=== PATIENT | male | born 1970 | race Caucasian/White ===

== ENCOUNTER → 2020-01-16 12:31 | Outpatient (CLI) | payer SELFPAY ==
[2020-01-16 13:31] LABS: Add Manual Diff / Slide Review NO; Basophils Absolute Auto 0 /uL (0-100); Basophils Percent Auto 0.2 % (0-2); Eosinophils Absolute Auto 0 /uL (0-450); Eosinophils Percent Auto 0.4 % (2-4); Hemoglobin 14.3 g/dL (13.5-17.5); Lymphocytes Absolute Auto 1200 /uL (1100-4500); Mean Corpuscular HGB Conc 33.9 % (30-36); Mean Corpuscular Hemoglobin 34.7 PG (26-34); Mean Corpuscular Volume 102.3 fL (80-100); Monocytes Absolute Auto 600 /uL (0-900); Monocytes Percent Auto 6.4 % (3-14); Neutrophils Absolute Auto 7400 /uL (1500-7000); Platelet Count 303 X10^3/uL (150-400); Red Blood Cell Count 4.11 X10^6/uL (4.5-5.9); Red Cell Distribution Width 17.9 % (11.6-14.8); White Blood Cell Count 9.2 X10^3/uL (4.5-11.0)
[2020-01-16 14:41] LABS: Hemoglobin A1C% w Est Avg Glu 5.4 % (4.0-6.0)
[2020-01-16 14:47] LABS: HEMOLYSIS < 15 (0-50); Sodium 139 mmol/L (137-145)
[2020-01-16 14:49] LABS: Alanine Aminotransferase 16 IU/L (<50); Albumin 4.8 g/dL (3.5-5.0); Albumin Globulin Ratio 1.7 (1.0-2.8); Alkaline Phosphatase 57 U/L (38-126); Aspartate Aminotransferase 23 IU/L (17-59); BUN Creatinine Ratio 13.8 (6-22); Bilirubin Total 0.8 mg/dL (0.2-1.3); Blood Urea Nitrogen 12 mg/dL (9-20); C-Reactive Protein Quant < 0.5 mg/dL (<1.0); Calcium 9.8 mg/dL (8.4-10.2); Carbon Dioxide 24 mmol/L (22-32); Chloride 106 mmol/L (98-107); Cholesterol 193 mg/dL (140-199); Estimated Glomerular Filt Rate > 60.0 mL/min (>60); Globulin 2.9 g/dL (1.7-4.1); Glucose 87 mg/dL (70-100); HDL Cholesterol 39 mg/dL (40-60); LDL Cholesterol Calculated 131 mg/dL (<100); Potassium 4.4 mmol/L (3.4-5.1); Total Protein 7.7 g/dL (6.3-8.2); Triglycerides 114 mg/dL (35-150); Uric Acid 4.8 mg/dL (3.5-8.5)
[2020-01-16 14:54] LABS: Erythrocyte Sedimentation Rate 7 MM/HR (0-15)
[2020-01-16 16:38] LABS: Vitamin B12 < 159 pg/mL (239-931)
[2020-01-19 14:07] LABS: Albumin 4.3 g/dL (2.9-4.4); Alpha-1-Globulin 0.2 g/dL (0.0-0.4); Alpha-2-Globulin 0.7 g/dL (0.4-1.0); Gamma Globulin 0.9 g/dL (0.4-1.8); Globulin Total 2.8 g/dL (2.2-3.9); Protein, Total 7.1 g/dL (6.0-8.5)
== END ==
PROVIDERS: Family Provider Internal Medicine; PCP Physician Assistant; Referring Provider Physician Assistant; Visit Provider Physician Assistant
DX: G60.9 Hereditary and idiopathic neuropathy, unspecified (principal); E03.9 Hypothyroidism, unspecified; D47.2 Monoclonal gammopathy; R73.01 Impaired fasting glucose; M10.079 Idiopathic gout, unspecified ankle and foot
CPT/HCPCS: 80053; 80061; 82607; 83036; 84155; 84165; 84439; 84443; 84550; 85025; 85651; 86140

== ENCOUNTER → 2020-02-04 08:51 | Outpatient (CLI) | payer SELFPAY ==
[2020-02-04 10:55] LABS: Add Manual Diff / Slide Review NO; Basophils Absolute Auto 0 /uL (0-100); Basophils Percent Auto 0.3 % (0-2); Eosinophils Absolute Auto 100 /uL (0-450); Eosinophils Percent Auto 1.9 % (2-4); Hematocrit 40.2 % (41-53); Lymphocytes Absolute Auto 1300 /uL (1100-4500); Lymphocytes Percent Auto 21.7 % (25-40); Mean Corpuscular HGB Conc 34.7 % (30-36); Mean Corpuscular Hemoglobin 36.5 PG (26-34); Mean Corpuscular Volume 104.9 fL (80-100); Monocytes Absolute Auto 500 /uL (0-900); Monocytes Percent Auto 7.6 % (3-14); Neutrophils Absolute Auto 4200 /uL (1500-7000); Neutrophils Percent Auto 68.5 % (50-75); Platelet Count 286 X10^3/uL (150-400); Red Blood Cell Count 3.83 X10^6/uL (4.5-5.9); Red Cell Distribution Width 18.9 % (11.6-14.8); White Blood Cell Count 6.1 X10^3/uL (4.5-11.0)
[2020-02-04 11:08] LABS: Alanine Aminotransferase 17 IU/L (<50); Albumin 4.8 g/dL (3.5-5.0); Albumin Globulin Ratio 1.5 (1.0-2.8); Alkaline Phosphatase 47 U/L (38-126); Aspartate Aminotransferase 24 IU/L (17-59); BUN Creatinine Ratio 10.1 (6-22); Bilirubin Total 0.7 mg/dL (0.2-1.3); Blood Urea Nitrogen 9 mg/dL (9-20); Calcium 9.9 mg/dL (8.4-10.2); Carbon Dioxide 24 mmol/L (22-32); Chloride 105 mmol/L (98-107); Estimated Glomerular Filt Rate > 60.0 mL/min (>60); Globulin 3.1 g/dL (1.7-4.1); Glucose 85 mg/dL (70-100); HEMOLYSIS < 15 (0-50); Potassium 4.4 mmol/L (3.4-5.1); Sodium 141 mmol/L (137-145); Total Protein 7.9 g/dL (6.3-8.2)
[2020-02-04 12:10] LABS: Folate 16.1 ng/mL (2.76-20.0); Vitamin B12 < 159 pg/mL (239-931)
[2020-02-04 12:14] LABS: Free T4, Direct Thyroxine 0.91 ng/dL (0.78-2.19)
[2020-02-05 04:27] LABS: Homocysteine 158.5 umol/L (0.0-14.5)
[2020-02-06 18:53] LABS: Methylmalonic Acid,Serum 1550 nmol/L (0-378)
== END ==
PROVIDERS: Family Provider Internal Medicine; PCP Physician Assistant; Referring Provider Physician Assistant; Visit Provider Physician Assistant
DX: D75.89 Other specified diseases of blood and blood-forming organs (principal); E53.8 Deficiency of other specified B group vitamins; E03.9 Hypothyroidism, unspecified; R19.7 Diarrhea, unspecified; R73.01 Impaired fasting glucose; G60.9 Hereditary and idiopathic neuropathy, unspecified
CPT/HCPCS: 36415; 80053; 82607; 82746; 83090; 83921; 84439; 84443; 85025

== ENCOUNTER → 2020-03-25 08:18 | Outpatient (CLI) | payer SELFPAY ==
[2020-03-25 09:00] LABS: Add Manual Diff / Slide Review NO; Basophils Absolute Auto 0 /uL (0-100); Basophils Percent Auto 0.6 % (0-2); Eosinophils Absolute Auto 100 /uL (0-450); Eosinophils Percent Auto 1.7 % (2-4); Hematocrit 42.2 % (41-53); Hemoglobin 14.5 g/dL (13.5-17.5); Lymphocytes Absolute Auto 1400 /uL (1100-4500); Mean Corpuscular HGB Conc 34.4 % (30-36); Mean Corpuscular Hemoglobin 34.7 PG (26-34); Monocytes Absolute Auto 600 /uL (0-900); Monocytes Percent Auto 10.4 % (3-14); Neutrophils Absolute Auto 3600 /uL (1500-7000); Neutrophils Percent Auto 63.3 % (50-75); Platelet Count 232 X10^3/uL (150-400); Red Blood Cell Count 4.18 X10^6/uL (4.5-5.9); Red Cell Distribution Width 14.4 % (11.6-14.8); White Blood Cell Count 5.6 X10^3/uL (4.5-11.0)
[2020-03-25 09:13] LABS: Alanine Aminotransferase 18 IU/L (<50); Albumin 4.8 g/dL (3.5-5.0); Albumin Globulin Ratio 1.6 (1.0-2.8); Alkaline Phosphatase 58 U/L (38-126); Aspartate Aminotransferase 27 IU/L (17-59); BUN Creatinine Ratio 9.9 (6-22); Bilirubin Total 0.5 mg/dL (0.2-1.3); Blood Urea Nitrogen 9 mg/dL (9-20); Calcium 9.9 mg/dL (8.4-10.2); Carbon Dioxide 25 mmol/L (22-32); Chloride 106 mmol/L (98-107); Estimated Glomerular Filt Rate > 60.0 mL/min (>60); Glucose 99 mg/dL (70-100); HEMOLYSIS < 15 (0-50); Potassium 3.8 mmol/L (3.4-5.1); Sodium 142 mmol/L (137-145); Total Protein 7.8 g/dL (6.3-8.2)
[2020-03-25 10:10] LABS: Free T4, Direct Thyroxine 0.92 ng/dL (0.78-2.19)
[2020-03-25 10:19] LABS: Folate 8.1 ng/mL (2.76-20.0); Vitamin B12 222 pg/mL (239-931)
[2020-03-26 05:10] LABS: Homocysteine 46.6 umol/L (0.0-14.5)
[2020-03-29 12:23] LABS: Methylmalonic Acid,Serum 204 nmol/L (0-378)
== END ==
PROVIDERS: Family Provider Internal Medicine; PCP Physician Assistant; Referring Provider Physician Assistant; Visit Provider Physician Assistant
DX: D75.89 Other specified diseases of blood and blood-forming organs (principal); E03.9 Hypothyroidism, unspecified; R19.7 Diarrhea, unspecified; R73.01 Impaired fasting glucose; G80.9 Cerebral palsy, unspecified
CPT/HCPCS: 36415; 80053; 82607; 82746; 83090; 83921; 84439; 84443; 85025

== ENCOUNTER → 2020-08-23 07:20 | Outpatient (CLI) | payer SELFPAY ==
[2020-08-23 09:40] LABS: TSH w/ Reflex to FT4 0.65 uIU/mL (0.47-4.68)
[2020-08-23 10:01] LABS: Vitamin B12 764 pg/mL (239-931)
== END ==
PROVIDERS: Family Provider Internal Medicine; PCP Physician Assistant; Referring Provider Physician Assistant; Visit Provider Physician Assistant
DX: D75.89 Other specified diseases of blood and blood-forming organs (principal); E53.8 Deficiency of other specified B group vitamins; E03.9 Hypothyroidism, unspecified; R19.7 Diarrhea, unspecified; R73.01 Impaired fasting glucose; G60.9 Hereditary and idiopathic neuropathy, unspecified
CPT/HCPCS: 36415; 82607; 84443

== ENCOUNTER → 2021-02-17 06:52 | Outpatient (CLI) | payer OTHER, SELFPAY ==
--- NOTE | 2021-02-17 | DI.RAD.S_ITS ---
PROCEDURE: XR FOOT LT MIN 3V INDICATIONS: Pain in unspecified hand/Pain in left foot TECHNIQUE: 3 views of the foot were acquired. COMPARISON: None. FINDINGS: Bones: No fractures or dislocations. No suspicious bony lesions. Severe 1st MTP osteoarthritis. Scattered degenerative subchondral sclerosis and spurring. Soft tissues: No tibiotalar joint effusion. Achilles tendon appears normal. IMPRESSION: Severe 1st MTP osteoarthritis. Dictated by: Jem Alonso M.D. on 02/17/2021 at 10:33 Approved by: Jem Alonso M.D. on 02/17/2021 at 10:35
--- NOTE | 2021-02-17 | DI.RAD.S_ITS ---
PROCEDURE: XR HAND RT 2V INDICATIONS: Pain in unspecified hand/Pain in left foot TECHNIQUE: 3 views of the hand(s) acquired. COMPARISON: None. FINDINGS: Bones: Distal 5th metacarpal deformity presumably from prior remote fracture. Scattered degenerative subchondral sclerosis and spurring. Soft tissues: No suspicious soft tissue calcifications. IMPRESSION: Chronic appearing fracture deformity of the distal 5th metacarpal. Mild osteoarthritis. If the patient's pain or other symptoms persist, consider further evaluation with MRI Dictated by: Jem Alonso M.D. on 02/17/2021 at 9:55 Approved by: Jem Alonso M.D. on 02/17/2021 at 9:57
--- NOTE | 2021-02-17 | DI.RAD.S_ITS ---
PROCEDURE: XR HAND LT 2V INDICATIONS: Pain in unspecified hand/Pain in left foot TECHNIQUE: 3 views of the hand(s) acquired. COMPARISON: None. FINDINGS: Bones: No fractures or dislocations. Carpal bones are normally aligned. No suspicious bony lesions. Soft tissues: No suspicious soft tissue calcifications. IMPRESSION: Mild osteoarthritis Dictated by: Jem Alonso M.D. on 02/17/2021 at 9:58 Approved by: Jem Alonso M.D. on 02/17/2021 at 10:24
== END ==
PROVIDERS: Family Provider Internal Medicine; PCP Physician Assistant; Referring Provider Physician Assistant; Visit Provider Physician Assistant
DX: M79.672 Pain in left foot (principal); M79.643 Pain in unspecified hand; M19.042 Primary osteoarthritis, left hand; M19.041 Primary osteoarthritis, right hand; M19.072 Primary osteoarthritis, left ankle and foot
CPT/HCPCS: 73120; 73630

== ENCOUNTER → 2021-07-14 06:39 | Outpatient (CLI) | payer OTHER, SELFPAY ==
--- NOTE | 2021-07-14 | DI.RAD.S_ITS ---
PROCEDURE: XR KNEE LT 3V INDICATIONS: LEFT KNEE PAIN TECHNIQUE: 3 views of the knee were acquired. COMPARISON: None. FINDINGS: Bones: No fractures or dislocations. No suspicious bony lesions. Soft tissues: Suprapatellar soft tissue fullness, which may reflect a joint effusion. No suspicious soft tissue calcifications. IMPRESSION: No acute osseous abnormality. Dictated by: Ye Escobar M.D. on 07/14/2021 at 8:06 Approved by: Ye Escobar M.D. on 07/14/2021 at 8:13
== END ==
PROVIDERS: Family Provider Internal Medicine; PCP Physician Assistant; Referring Provider Physician Assistant; Visit Provider Physician Assistant
DX: M25.562 Pain in left knee (principal)
CPT/HCPCS: 73562

== ENCOUNTER 2021-09-08 09:58 | Emergency (ER) | payer OTHER, MEDICAID, SELFPAY ==
[2021-09-08 10:10] VITALS: BP 154/80; PULSE 77; RESP 18; TEMP 36.8; O2SAT 98; BMI 20.3
--- NOTE | 2021-09-08 10:40 | ED.BACK ---
HPI - Back Pain/Injury General Chief Complaint: Back Pain/Injury Stated Complaint: Back pain- can't walk Time Seen by Provider: 09/08/21 10:20 Source: patient Mode of arrival: Ambulatory Limitations: no limitations History of Present Illness HPI Narrative: This is a 50-year-old male comes emergency department with thoracic back pain. Patient states he has had back pain on and off since he turned 28. He states most recently in the last week he had pain in his midthoracic region that occurred while he was reaching for his coffee. Patient states he has been about a week in bed he states today he got up and was walking around doing fairly well when he bent over to tie his shoes and then had significant worsening in his pain. He has been taking Tylenol for pain. Patient states he had some pain down his left buttock but that has improved. He states he had some numbness and tingling in his arms but not his legs. That has also resolved. Patient states he has not any loss of bowel or bladder control. No saddle anesthesia. He does not have any weakness. He denies any medical issues other than hypothyroid and he takes tamsulosin daily. He denies any recent surgeries. No back surgeries. No known drug allergies. He does smoke, occasional alcohol, uses marijuana but no other illicit. He is accompanied by his mother today. Related Data Home Medications Medication Instructions Recorded Confirmed hydroxyzine HCl 25 mg tablet 25 mg PO DAILY 09/08/21 09/08/21 levothyroxine 150 mcg tablet 150 mcg PO DAILY 09/08/21 09/08/21 tamsulosin 0.4 mg capsule 0.4 mg PO DAILY 09/08/21 09/08/21 Previous Rx's Medication Instructions Recorded diazepam 10 mg tablet (Valium) 10 mg PO TID PRN #10 tab 09/08/21 meloxicam 7.5 mg tablet 7.5 mg PO BID PRN #14 tab 09/08/21 Allergies Allergy/AdvReac Type Severity Reaction Status Date / Time No Known Drug Allergies Allergy Verified 09/08/21 10:08 Review of Systems Review of Systems ROS Unobtainable: All systems reviewed & are unremarkable except as noted in HPI and below Patient History Social History Smoking Status: Current some day smoker Smoking Status: Current some day smoker alcohol intake frequency: 0-2 drinks per day Substance Use Type: marijuana Exam Narrative Exam Narrative: GENERAL: Alert and oriented x three, vonj-ic-cpgyjtam distress. HEENT: Head normocephalic, atraumatic, EOMI, pupils reactive, face symmetric, moist mucous membranes NECK: Supple, full range of motion CARDIOVASCULAR: Regular rate and rhythm without murmurs, rubs or gallops. RESPIRATORY: Breath sounds equal bilaterally, no wheezes rales or rhonchi. ABDOMEN: Soft, nontender. Normoactive bowel sounds all 4 quadrants. No guarding or rebound, rigidity, no mass : No CVA tenderness BACK: No cervical, thoracic or lumbar vertebral point tenderness. Patient has normal range of motion, the patient does appear uncomfortable with flexion extension rotation of his thoracic spine. Gait is normal. Rectal exam is deferred. Muscle strength is 5/5 in lower extremities, DTRs are 2/4 and lower extremities. Dorsalis pedis and tibialis pulses are 2+ and lower extremities. Sensation is intact in the lower extremities. EXTREMITIES: Normal range of motion, no clubbing or edema. Neurovascularly intact NEUROLOGICAL: Cranial nerves II through XII grossly intact. Moving all extremities SKIN: Warm, dry, no petechiae, no rashes or lesions. Initial Vital Signs Initial Vital Signs: Vital Signs Temperature 98.3 F 09/08/21 10:10 Pulse Rate 77 09/08/21 10:10 Respiratory Rate 18 09/08/21 10:10 Blood Pressure 154/80 H 09/08/21 10:10 Pulse Oximetry 98 09/08/21 10:10 Course Orders Ordered: ED Orders 09/08/21 10:51 XR thoracic spine 3V Stat Discontinued Medications Diazepam (Diazepam 5 Mg Tablet) 10 mg PO NOW ONE Stop: 09/08/21 10:51 Last Admin: 09/08/21 10:59 Dose: 10 mg Documented by: EDMAR Ketorolac Tromethamine (Ketorolac 30 Mg/Ml Vial) 30 mg IM NOW ONE Stop: 09/08/21 10:51 Last Admin: 09/08/21 10:58 Dose: 30 mg Documented by: EDMAR Reevaluation(s) Reevaluation #1: Patient feels much better after medications. Time: 11:41 Vital Signs Vital signs: Vital Signs - 8 hr 12/09/21 12:01 Pulse Rate 77 Respiratory Rate 18 Blood Pressure 118/73 Pulse Oximetry 97 [facility] - Back Pain/Injury Imaging Data thoracic spine: Radiologist's Impression: [address] [address] XRay Report Signed Patient: Triston Chin MR#: [id number] : 1970 Acct:[id number] Age/Sex: 50 / M Date of Service: 09/08/21 Loc: ED Accession Number: [id number] ?? Procedure: XR thoracic spine 3V Ordering Provider: Cony Hutchins D.O. PROCEDURE:? XR THORACIC SPINE 3V ? INDICATIONS:? mid thoracic pain, no trauma, many years ? TECHNIQUE:? 3 views of the thoracic spine were acquired.? ? COMPARISON:? [facility], , THORACIC SPINE 3 VIEWS, 01/07/2015, 9:45. ? FINDINGS:? ? Bones:? No fractures or dislocations.? No suspicious bony lesions.? 12 pairs of ribs are noted, and appear intact where visualized.? ? Soft tissues:? No paravertebral stripe thickening.? ? ? IMPRESSION:? No evidence acute bony abnormality of the thoracic spine. ? If clinical suspicion and/or symptoms persist, further assessment with repeat plain films, or advanced imaging (e.g., CT, MRI, or bone scan) may be helpful for further assessment. ? Dictated by: aWyne Metcalf M.D. on 09/08/2021 at 11:26 ? ? Approved by: Wayne Metcalf M.D. on 09/08/2021 at 11:26? [facility] Narrative Medical decision making narrative: This is a 50-year-old male with no red flag symptoms with thoracic back pain. Patient has been taking Tylenol with minimal improvement for the past week. He was improving and then today went to move had significant worsening. He has never had x-ray imaging of his back. This seems appropriate with 22 years of back pain intermittently. Thoracic xray shows no acute process. Patient feels comfortable with this plan he does have primary care and we discussed trying PT which she has never had before. Discharge Plan Departure Patient Disposition: Home Clinical Impression: Back pain, thoracic Instructions: Thoracic Back Pain Activity Restrictions/Additional Instructions: Follow-up with your physician for recheck. If her symptoms are not improving. Sometimes here physician also referred to PT which can be helpful. You the take meloxicam 1 tablet every 12 hours as needed for pain. You may take muscle relaxer 1 tablet every 8 hours as needed for muscle relaxer. Prescription sent to [facility] in [place]. Please return for fevers, rapidly worsening symptoms, new weakness, loss of sensation, loss of bowel or bladder control, inability to lift your leg foot or toes for other new or concerning symptoms. Prescriptions: New meloxicam 7.5 mg tablet 7.5 mg PO BID PRN (Reason: pain) Qty: 14 0RF diazepam [Valium] 10 mg tablet 10 mg PO TID PRN (Reason: muscle spasm) Qty: 10 0RF No Action levothyroxine 150 mcg tablet 150 mcg PO DAILY 0RF tamsulosin 0.4 mg capsule 0.4 mg PO DAILY 0RF hydroxyzine HCl 25 mg tablet 25 mg PO DAILY 0RF Referrals: Li Malik PA-C [Primary Care Provider] - Stand Alone Forms: Work Release Note
--- NOTE | 2021-09-08 10:51 | DI.RAD.S_ITS ---
PROCEDURE: XR THORACIC SPINE 3V INDICATIONS: mid thoracic pain, no trauma, many years TECHNIQUE: 3 views of the thoracic spine were acquired. COMPARISON: [facility], , THORACIC SPINE 3 VIEWS, 01/07/2015, 9:45. FINDINGS: Bones: No fractures or dislocations. No suspicious bony lesions. 12 pairs of ribs are noted, and appear intact where visualized. Soft tissues: No paravertebral stripe thickening. IMPRESSION: No evidence acute bony abnormality of the thoracic spine. If clinical suspicion and/or symptoms persist, further assessment with repeat plain films, or advanced imaging (e.g., CT, MRI, or bone scan) may be helpful for further assessment. Dictated by: Wayne Metcalf M.D. on 09/08/2021 at 11:26 Approved by: Wayne Metcalf M.D. on 09/08/2021 at 11:26
[2021-09-08] MEDS: KETOROLAC 30 MG/ML VIAL IM (10:58)
[2021-09-08] MEDS: diazePAM 5 MG TABLET 10 MG PO (10:59)
[2021-09-08 12:01] VITALS: BP 118/73; PULSE 77; RESP 18; O2SAT 97
== END 2021-09-08 12:02 | disposition home or self-care (01) ==
PROVIDERS: Emergency Provider Emergency Medicine; Family Provider Internal Medicine; PCP Physician Assistant
DX: M54.6 Pain in thoracic spine (principal)
CPT/HCPCS: 72072; 96372; 99283; 99284; J1885

== ENCOUNTER → 2021-10-18 07:04 | Outpatient (CLI) | payer OTHER, MEDICAID, SELFPAY ==
[2021-10-18 09:06] LABS: Add Manual Diff / Slide Review NO; Basophils Absolute Auto 0 /uL (0-100); Basophils Percent Auto 0.3 % (0-2); Eosinophils Absolute Auto 100 /uL (0-450); Eosinophils Percent Auto 1.5 % (2-4); Hematocrit 45.8 % (41-53); Hemoglobin 15.7 g/dL (13.5-17.5); Lymphocytes Absolute Auto 1600 /uL (1100-4500); Lymphocytes Percent Auto 27.2 % (25-40); Mean Corpuscular HGB Conc 34.2 % (30-36); Mean Corpuscular Hemoglobin 30.4 PG (26-34); Mean Corpuscular Volume 88.7 fL (80-100); Monocytes Absolute Auto 600 /uL (0-900); Monocytes Percent Auto 9.8 % (3-14); Neutrophils Absolute Auto 3700 /uL (1500-7000); Neutrophils Percent Auto 61.2 % (50-75); Platelet Count 254 X10^3/uL (150-400); Red Blood Cell Count 5.17 X10^6/uL (4.5-5.9); Red Cell Distribution Width 13.7 % (11.6-14.8)
[2021-10-18 09:30] LABS: Alanine Aminotransferase 19 IU/L (<50); Albumin 4.6 g/dL (3.5-5.0); Albumin Globulin Ratio 1.6 (1.0-2.8); Alkaline Phosphatase 63 U/L (38-126); Aspartate Aminotransferase 23 IU/L (17-59); BUN Creatinine Ratio 12.7 (6-22); Bilirubin Total 0.6 mg/dL (0.2-1.3); Blood Urea Nitrogen 13 mg/dL (9-20); C-Reactive Protein Quant < 0.5 mg/dL (<1.0); Calcium 9.9 mg/dL (8.4-10.2); Carbon Dioxide 24 mmol/L (22-32); Chloride 106 mmol/L (98-107); Estimated Glomerular Filt Rate > 60.0 mL/min (>60); Globulin 2.8 g/dL (1.7-4.1); Glucose 85 mg/dL (70-100); HEMOLYSIS < 15 (0-50); Potassium 4.2 mmol/L (3.4-5.1); Sodium 139 mmol/L (137-145); Total Protein 7.4 g/dL (6.3-8.2)
[2021-10-18 09:43] LABS: Erythrocyte Sedimentation Rate 2 MM/HR (0-15)
[2021-10-18 09:47] LABS: Rheumatoid Factor < 8.6 IU/mL (<12.0)
[2021-10-20 14:36] LABS: ANA Screen, IFA Negative (.)
== END ==
PROVIDERS: Family Provider Internal Medicine; PCP Physician Assistant; Referring Provider Physician Assistant; Visit Provider Physician Assistant
DX: M79.643 Pain in unspecified hand (principal)
CPT/HCPCS: 36415; 80053; 85025; 85651; 86038; 86140; 86430

== ENCOUNTER → 2022-05-22 06:51 | Outpatient (CLI) | payer OTHER, SELFPAY ==
[2022-05-22 10:30] LABS: Alanine Aminotransferase 20 IU/L (<50); Albumin 4.2 g/dL (3.5-5.0); Albumin Globulin Ratio 1.5 (1.0-2.8); Alkaline Phosphatase 52 U/L (38-126); Aspartate Aminotransferase 26 IU/L (17-59); BUN Creatinine Ratio 17.3 (6-22); Bilirubin Total 0.8 mg/dL (0.2-1.3); Blood Urea Nitrogen 18 mg/dL (9-20); Calcium 9.1 mg/dL (8.4-10.2); Carbon Dioxide 26 mmol/L (22-32); Chloride 106 mmol/L (98-107); Cholesterol 220 mg/dL (140-199); Estimated Glomerular Filt Rate > 60 mL/min (>60); Globulin 2.8 g/dL (1.7-4.1); Glucose 86 mg/dL (70-100); HDL Cholesterol 64 mg/dL (40-60); HEMOLYSIS < 15 (0-50); LDL Cholesterol Calculated 136 mg/dL (<100); Potassium 4.7 mmol/L (3.4-5.1); Sodium 137 mmol/L (137-145); Triglycerides 102 mg/dL (35-150)
[2022-05-22 10:42] LABS: Vitamin D 25 Hydroxy (D3) 16.7 ng/mL (30.0-100.0)
[2022-05-22 11:28] LABS: Free T4, Direct Thyroxine 1.23 ng/dL (0.78-2.19)
[2022-05-22 11:32] LABS: Folate 4.8 ng/mL (2.76-20.0); Vitamin B12 299 pg/mL (239-931)
== END ==
PROVIDERS: Family Provider Internal Medicine; PCP Family Medicine; Referring Provider Family Medicine; Visit Provider Family Medicine
DX: E03.9 Hypothyroidism, unspecified (principal); E78.49 Other hyperlipidemia; E53.8 Deficiency of other specified B group vitamins; E56.9 Vitamin deficiency, unspecified
CPT/HCPCS: 36415; 80053; 80061; 82306; 82607; 82746; 84439; 84443

== ENCOUNTER → 2022-08-07 06:50 | Outpatient (CLI) | payer OTHER, SELFPAY ==
[2022-08-07 10:14] LABS: Add Manual Diff / Slide Review NO; Basophils Absolute Auto 0 /uL (0-100); Basophils Percent Auto 0.3 % (0-2); Eosinophils Absolute Auto 200 /uL (0-450); Eosinophils Percent Auto 2.7 % (2-4); Hematocrit 45.1 % (41-53); Hemoglobin 15.7 g/dL (13.5-17.5); Lymphocytes Absolute Auto 1800 /uL (1100-4500); Mean Corpuscular HGB Conc 34.7 % (30-36); Mean Corpuscular Hemoglobin 31.3 PG (26-34); Mean Corpuscular Volume 90.1 fL (80-100); Monocytes Absolute Auto 700 /uL (0-900); Neutrophils Absolute Auto 3900 /uL (1500-7000); Platelet Count 243 X10^3/uL (150-400); Red Cell Distribution Width 13.4 % (11.6-14.8); White Blood Cell Count 6.6 X10^3/uL (4.5-11.0)
[2022-08-07 10:32] LABS: HEMOLYSIS < 15 (0-50); Iron 91 ug/dL (49-181)
[2022-08-07 10:43] LABS: Percent Iron Saturation 26 % (20-50); Total Iron Binding Capacity 350 ug/dL (261-462); Transferrin 295 mg/dL (206-381)
[2022-08-07 11:03] LABS: TSH w/ Reflex to FT4 8.72 uIU/mL (0.47-4.68)
[2022-08-07 11:06] LABS: Ferritin 11 ng/mL (18-464)
[2022-08-07 11:37] LABS: Folate 4.7 ng/mL (2.76-20.0); Vitamin B12 819 pg/mL (239-931)
[2022-08-07 11:45] LABS: Free T4, Direct Thyroxine 1.41 ng/dL (0.78-2.19)
[2022-08-08 11:39] LABS: Triiodothyronine T3 Total 66 ng/dL (71-180)
== END ==
PROVIDERS: Family Provider Internal Medicine; PCP Family Medicine; Referring Provider Family Medicine; Visit Provider Family Medicine
DX: E03.9 Hypothyroidism, unspecified (principal); E53.8 Deficiency of other specified B group vitamins; E55.9 Vitamin D deficiency, unspecified; R53.83 Other fatigue
CPT/HCPCS: 36415; 82306; 82607; 82728; 82746; 83540; 83550; 84439; 84443; 84480; 85025

== ENCOUNTER → 2022-09-27 06:46 | Outpatient (CLI) | payer OTHER, SELFPAY ==
[2022-09-27 08:45] LABS: Prolactin 14.4 ng/mL (3.7-17.9)
[2022-09-27 08:58] LABS: Cortisol AM (Before 10AM) 12.5 ug/dL (4.46-22.7)
[2022-09-27 09:03] LABS: Ferritin 14 ng/mL (18-464); TSH w/ Reflex to FT4 6.26 uIU/mL (0.47-4.68)
[2022-09-27 09:35] LABS: Free T4, Direct Thyroxine 1.75 ng/dL (0.78-2.19)
[2022-09-28 08:47] LABS: Thyroid Peroxidase Antibodies >600 IU/mL (0-34)
[2022-09-28 15:12] LABS: Anti Thyroglobulin Antibody 48.6 IU/mL (0.0-0.9)
== END ==
PROVIDERS: Family Provider Internal Medicine; PCP Family Medicine; Referring Provider Family Medicine; Visit Provider Family Medicine
DX: E03.9 Hypothyroidism, unspecified (principal); R79.0 Abnormal level of blood mineral
CPT/HCPCS: 36415; 82533; 82728; 84146; 84439; 84443; 86376; 86800

== ENCOUNTER → 2022-10-04 11:21 | Outpatient (CLI) | payer OTHER, SELFPAY ==
[2022-10-04 13:45] LABS: COVID19 -Nasal RAPID Negative (Negative)
== END ==
PROVIDERS: Family Provider Internal Medicine; PCP Family Medicine; Visit Provider Surgery
DX: Z20.822 Contact with and (suspected) exposure to COVID-19 (principal); Z01.812 Encounter for preprocedural laboratory examination
CPT/HCPCS: 87635; C9803

== ENCOUNTER 2022-10-05 12:27 | Day surgery (SDC) | payer OTHER, SELFPAY ==
--- NOTE | 2022-10-05 | PATH_ITS ---
[facility] Accession Number: [id number] . 01 Material submitted: . PART A: stomach - ANTRUM BIOPSIES PART B: esophagus - MID ESOPHAGUS BIOPSIES . 01 Diagnosis: A. Stomach, Antrum, Biopsy: Antral mucosa with mild chronic gastritis. Negative for Helicobacter by immunohistochemistry. Negative for intestinal metaplasia. Negative for dysplasia and malignancy. . B. Mid Esophagus, Biopsy: Squamous epithelium with no diagnostic abnormality. Intraepithelial eosinophils are not increased. Negative for dysplasia and malignancy. [facility] 10/11/2022 1120 Local . 01 Electronically signed: . Nuha Zamora MD, Pathologist NPI- [id number] . 01 Gross description: . Part A: ANTRUM BIOPSIES: Received in formalin are 4 fragment(s) of massey, soft tissue measuring 0.5 x 0.2 x 0.1 cm to 0.2 x 0.1 x 0.1 cm submitted entirely in 1 cassette(s) Part B: MID ESOPHAGUS BIOPSIES: Received in formalin is 1 fragment(s) of massey, soft tissue measuring 0.3 x 0.2 x 0.1 cm submitted entirely in 1 cassette(s) /CPE 10/06/2022 0650 Local . 01 Microscopic: . A. An immunohistochemical stain was performed to evaluate for Helicobacter organisms and is negative. The control stain showed appropriate reactivity. . . * This test was developed and its performance characteristics determined by [employer]. It has not been cleared or approved by the U.S. Food and Drug Administration. The FDA has determined that such clearance or approval is not necessary. This test is used for clinical purposes. It should not be regarded as investigational or for research. . 01 Pathologist provided ICD-10: Z80.0 . 01 CPT . 367526, 371369, V17871 Specimen Comment: A courtesy copy of this report has been sent to [phone] Performed at: 01 [facility] [address] [place] [address], [place], [place] [id number] MD Álvaro Hartman MD Phone: [phone]
--- NOTE | 2022-10-05 13:24 | PM.HP.1 ---
History of Present Illness History of Present Illness Date Patient Seen: 10/05/22 Time Patient Seen: 13:24 Chief complaint: EGD/COLONOSCOPY Narrative: Triston is here for his EGD and colonoscopy. Please see office note from August for details. Patient History Medical History Benign prostatic hyperplasia with lower urinary tract symptoms Fatigue Hyperlipemia Hypothyroid Insomnia Vitamin B12 deficiency Vitamin D deficiency Family & Social History Tobacco & Substance use: Smoking Status Current some day smoker alcohol intake frequency 0-2 drinks per day Substance Use Type marijuana Meds Home Medications and Allergies Home Medications Medication Instructions Recorded Confirmed Type hydroxyzine HCl 25 mg tablet 25 mg PO DAILY 09/08/21 08/18/22 History levothyroxine 150 mcg tablet 150 mcg PO DAILY 09/08/21 08/18/22 History tamsulosin 0.4 mg capsule 0.4 mg PO DAILY 09/08/21 08/18/22 History celecoxib 100 mg capsule (Celebrex) 100 mg PO BID 08/18/22 08/18/22 History cholecalciferol (vitamin D3) 125 125 mcg PO DAILY 08/18/22 08/18/22 History mcg (5,000 unit) capsule sodium sul 1.479 gram-potas ch See Rx Instructions PO PER PKG DIR 08/18/22 08/18/22 Rx 0.188 gram-magnes sul 0.225 gram #24 tabs tablet (Sutab) vitamin B complex (B 1 tab PO DAILY 08/18/22 08/18/22 History Complex-Vitamin B12 tablet) Allergies Allergy/AdvReac Type Severity Reaction Status Date / Time No Known Drug Allergies Allergy Verified 08/18/22 10:36 Exam Const General: healthy appearing Assessment & Plan Assessment and plan (1) Family history of colon cancer: Status: Acute (2) Intestinal metaplasia of stomach: Status: Acute Plan Reviewed risks and benefits of upper and lower endoscopy. He would like to proceed. Time Spent With Patient Critical Care time: I spent a total of [] minutes of critical care time on this patient's care today; this time is exclusive of procedural time.
[2022-10-05] MEDS: LACTATED RINGERS 1,000 ML 100 ML IV (13:35)
[2022-10-05 13:36] VITALS: BP 138/74; PULSE 74; RESP 18; TEMP 36.6; O2SAT 98; BMI 23.4
[2022-10-05 14:15] VITALS: BP 114/79; PULSE 92; RESP 16; TEMP 36.2; O2SAT 96
--- NOTE | 2022-10-05 14:16 | PM.OP.EC ---
Operative Date/Time/Diagnoses Date of procedure: 10/05/22 Time of procedure: 14:16 Pre-op diagnosis: History of gastric metaplasia and family history of colon cancer Post-op diagnosis: same Procedure & Clinicians Study performed: EGD and colonoscopy Same procedure as scheduled: Yes Surgeon: Triston Redding Procedure Notes Procedure in detail: Surgeon: Triston Redding MD Anesthesia: Jacky Andrews MD Procedure in detail: A timeout was performed. A bite blocked was placed and monitors were attached to the patient. The patient was positioned in a left lateral decubitus position. Sedation was administered by Dr. Andrews. Once the patient was sedated the endoscope was inserted through the bite block and passed through the esophagus and stomach and into the duodenum. The duodenum appeared normal. We then withdrew the scope into the stomach. There was some mild antritis and random biopsies were taken from the antrum. The endoscope was retroflexed and no hiatal hernia was seen. The endoscope was straightned and withdrawn into the esophagus. The Z-line appeared normal however there some questionable inflammation in the midesophagus and biopsies were taken from this area. The rest of the esophagus was normal. Findings: Mild antritis and questionable inflammation of the midesophagus Next we repositioned the patient for a colonoscopy. A digital rectal exam was performed and was normal. The colonoscope was inserted and advanced to the cecum. The appendiceal orifice was identified and photographed. The scope was slowly withdrawn over greater than 6 minutes. No abnormalities were seen. The scope was retroflexed in the rectum and no abnormalities were seen there. Findings: Normal colon EBL: 5 mL Scope withdrawal time: 7 minutes Sedation minutes: 19 minutes Post-procedure Disposition: PACU
[2022-10-05 14:20] VITALS: BP 111/83; PULSE 72; RESP 16; O2SAT 97
[2022-10-05 14:25] VITALS: BP 121/89; PULSE 72; RESP 14; O2SAT 97
[2022-10-05 14:36] VITALS: BP 128/93; PULSE 76; RESP 16; TEMP 36.6; O2SAT 98
== END 2022-10-05 14:48 | disposition home or self-care (01) ==
PROVIDERS: Family Provider Internal Medicine; PCP Family Medicine; Referring Provider Surgery; Visit Provider Surgery
PROC: 0DJ08ZZ Inspection of Upper Intestinal Tract, Via Natural or Artificial Opening Endoscopic (ICD-10-PCS; CPT 43235; principal; 2022-10-05 11:30)
PROC: 0DJD8ZZ Inspection of Lower Intestinal Tract, Via Natural or Artificial Opening Endoscopic (ICD-10-PCS; CPT 45378; 2022-10-05 11:30)
DX: Z12.11 Encounter for screening for malignant neoplasm of colon (principal); Z80.0 Family history of malignant neoplasm of digestive organs; Z87.19 Personal history of other diseases of the digestive system; K29.50 Unspecified chronic gastritis without bleeding
CPT/HCPCS: 43239; 45378

== ENCOUNTER → 2022-12-13 06:43 | Outpatient (CLI) | payer OTHER, SELFPAY ==
[2022-12-13 08:41] LABS: Add Manual Diff / Slide Review NO; Basophils Absolute Auto 0 /uL (0-100); Basophils Percent Auto 0.4 % (0-2); Eosinophils Absolute Auto 200 /uL (0-450); Eosinophils Percent Auto 2.7 % (2-4); Hematocrit 50.5 % (41-53); Lymphocytes Absolute Auto 1700 /uL (1100-4500); Lymphocytes Percent Auto 24.3 % (25-40); Mean Corpuscular HGB Conc 33.7 % (30-36); Mean Corpuscular Hemoglobin 30.1 PG (26-34); Mean Corpuscular Volume 89.4 fL (80-100); Monocytes Absolute Auto 700 /uL (0-900); Monocytes Percent Auto 10.6 % (3-14); Neutrophils Absolute Auto 4300 /uL (1500-7000); Platelet Count 259 X10^3/uL (150-400); Red Blood Cell Count 5.65 X10^6/uL (4.5-5.9); Red Cell Distribution Width 13.7 % (11.6-14.8)
[2022-12-13 09:23] LABS: Alanine Aminotransferase 32 IU/L (<50); Albumin 4.4 g/dL (3.5-5.0); Albumin Globulin Ratio 1.5 (1.0-2.8); Alkaline Phosphatase 62 U/L (38-126); Aspartate Aminotransferase 34 IU/L (17-59); BUN Creatinine Ratio 14.3 (6-22); Bilirubin Total 0.6 mg/dL (0.2-1.3); Blood Urea Nitrogen 16 mg/dL (9-20); Calcium 9.6 mg/dL (8.4-10.2); Carbon Dioxide 25 mmol/L (22-32); Chloride 105 mmol/L (98-107); Cholesterol 230 mg/dL (140-199); Estimated Glomerular Filt Rate > 60 mL/min (>60); Globulin 2.9 g/dL (1.7-4.1); Glucose 94 mg/dL (70-100); HDL Cholesterol 49 mg/dL (40-60); HEMOLYSIS < 15 (0-50); Potassium 4.5 mmol/L (3.4-5.1); Sodium 139 mmol/L (137-145); Total Protein 7.3 g/dL (6.3-8.2); Triglycerides 116 mg/dL (35-150)
[2022-12-13 09:24] LABS: LDL Cholesterol Calculated 158 mg/dL (<100)
[2022-12-13 09:36] LABS: Vitamin D 25 Hydroxy (D3) 58.9 ng/mL (30.0-100.0)
[2022-12-13 09:55] LABS: Ferritin 34 ng/mL (18-464)
[2022-12-13 10:22] LABS: TSH w/ Reflex to FT4 0.54 uIU/mL (0.47-4.68)
[2022-12-13 10:26] LABS: Folate 6.6 ng/mL (2.76-20.0); Vitamin B12 946 pg/mL (239-931)
== END ==
PROVIDERS: Family Provider Internal Medicine; PCP Family Medicine; Referring Provider Family Medicine; Visit Provider Family Medicine
DX: R79.0 Abnormal level of blood mineral (principal); E55.9 Vitamin D deficiency, unspecified; E53.8 Deficiency of other specified B group vitamins; E78.49 Other hyperlipidemia; E06.3 Autoimmune thyroiditis; E03.8 Other specified hypothyroidism
CPT/HCPCS: 36415; 80053; 80061; 82306; 82607; 82728; 82746; 84443; 85025

== ENCOUNTER → 2023-10-03 06:41 | Outpatient (CLI) | payer OTHER, SELFPAY ==
[2023-10-03 08:19] LABS: Add Manual Diff / Slide Review NO; Basophils Absolute Auto 0 /uL (0-100); Basophils Percent Auto 0.5 % (0-2); Eosinophils Absolute Auto 200 /uL (0-450); Eosinophils Percent Auto 2.1 % (2-4); Hematocrit 48.5 % (41-53); Hemoglobin 16.7 g/dL (13.5-17.5); Lymphocytes Absolute Auto 2000 /uL (1100-4500); Lymphocytes Percent Auto 23.7 % (25-40); Mean Corpuscular HGB Conc 34.4 % (30-36); Mean Corpuscular Volume 89.9 fL (80-100); Monocytes Absolute Auto 700 /uL (0-900); Monocytes Percent Auto 8.6 % (3-14); Neutrophils Absolute Auto 5400 /uL (1500-7000); Neutrophils Percent Auto 65.1 % (50-75); Platelet Count 256 X10^3/uL (150-400); Red Blood Cell Count 5.39 X10^6/uL (4.5-5.9); Red Cell Distribution Width 13.1 % (11.6-14.8); White Blood Cell Count 8.3 X10^3/uL (4.5-11.0)
[2023-10-03 08:59] LABS: Alanine Aminotransferase 29 IU/L (<50); Albumin 4.6 g/dL (3.5-5.0); Albumin Globulin Ratio 1.5 (1.0-2.8); Alkaline Phosphatase 65 U/L (38-126); BUN Creatinine Ratio 18.3 (6-22); Bilirubin Total 0.8 mg/dL (0.2-1.3); Blood Urea Nitrogen 17 mg/dL (9-20); Calcium 9.9 mg/dL (8.4-10.2); Carbon Dioxide 22 mmol/L (22-32); Chloride 106 mmol/L (98-107); Estimated Glomerular Filt Rate > 60 mL/min (>60); Globulin 3.1 g/dL (1.7-4.1); Glucose 96 mg/dL (70-100); HEMOLYSIS < 15 (0-50); Iron 141 ug/dL (49-181); Potassium 4.3 mmol/L (3.4-5.1); Sodium 138 mmol/L (137-145); Total Protein 7.7 g/dL (6.3-8.2)
[2023-10-03 09:19] LABS: Percent Iron Saturation 47 % (20-50); Total Iron Binding Capacity 298 ug/dL (261-462); Transferrin 262 mg/dL (206-381)
[2023-10-03 09:21] LABS: TSH w/ Reflex to FT4 0.36 uIU/mL (0.47-4.68)
[2023-10-03 09:46] LABS: Free T4, Direct Thyroxine 2.02 ng/dL (0.78-2.19)
[2023-10-03 09:52] LABS: Vitamin B12 918 pg/mL (239-931)
[2023-10-04 05:17] LABS: Cholesterol,Total 159 mg/dL (100-199); HDL Cholesterol 53 mg/dL (>39); LDL Cholesterol Cal 93 mg/dL (0-99); Triglycerides 63 mg/dL (0-149); VLDL Cholesterol Cal 13 mg/dL (5-40)
[2023-10-05 16:09] LABS: Aspartate Aminotransferase 33 IU/L (17-59); HEMOLYSIS 17 (0-50)
[2023-10-05 18:20] LABS: Hep C Virus Ab w/Reflex Quant NEGATIVE s/c (NEGATIVE)
== END ==
LOC: LAB 06:42
PROVIDERS: Family Provider Internal Medicine; PCP Nurse Practitioner Family; Referring Provider Nurse Practitioner Family; Visit Provider Nurse Practitioner Family
DX: E61.1 Iron deficiency (principal); E53.8 Deficiency of other specified B group vitamins; E78.5 Hyperlipidemia, unspecified; Z11.59 Encounter for screening for other viral diseases; E03.9 Hypothyroidism, unspecified
CPT/HCPCS: 36415; 80053; 80061; 82607; 82746; 83540; 83550; 84439; 84443; 85025; 86803